=== PATIENT | female | born 1970 | race African-American/Black ===

== ENCOUNTER 2018-10-11 19:22 | Emergency (ER) | payer BC ==
[~2018-10-11] VITALS: Ht 162.6 cm; Wt 74.8 kg
--- OUTSIDE RECORDS SUMMARY | 2018-10-11 19:28 | XMS REPORT | Continuity of Care Document ---
Author Author [facility] Organization [facility] Address Unknown Phone Unavailable Care Team Providers Care Revenue Investigator Name Role Phone Tyba Unavailable Unavailable Problems Problem Status Onset Date Classification Date Reported Comments Source SCREENING NO PAIN,NO LUMPS,NO IMPLANT Active 08/05/2016 [facility] SCREENING Active 09/16/2015 [facility] HYPERTENSION Active 02/12/2015 [facility] 784.2 CERVICAL SPINAL MASS Active 03/27/2014 [facility] 789.00=ABDOMINAL DISCOMFORT IN LEFT FLAN Active 03/27/2014 [facility] HYPERTENSION/ABN CT SCAN/EPIGASTRIC PAIN Active 03/03/2014 [facility] EPIGASTRIC PAIN Active 02/28/2014 [facility] ROUTINE Active 01/27/2014 [facility] SORE THROAT Active 12/16/2013 [facility] Discharge Diagnosis: Dysphagia 12/16/2013 12/19/2013 [facility] Anemia (disorder) Active Problem 05/16/2018 [facility] Impaired glucose tolerance (disorder) Active Problem 05/16/2018 [facility] Hypertensive disorder, systemic arterial (disorder) Active Problem 05/16/2018 [facility] Medications Medication Details Route Status Patient Instructions Ordering Provider Order Date Source Saline Flush 0.9% 10 mL, Route: IVP, Drug Form: INJ, Dosing Weight 65.909, kg, PRN, PRN Line Flush, Start date: 02/12/15 18:43:00, Duration: 30 day, Stop date: 03/14/15 18:42:00Notes: (Same as: BD Posiflush) Inactive 02/13/2015 [facility] Allergies, Adverse Reactions, Alerts No Known Medication Allergies Immunizations No Data Provided for This Section Results Order Name Results Value Reference Range Date Interpretation Comments Source URINE CHEM U Preg Negative (03/28/14 9:22 AM) Negative 03/28/2014 [facility] Pathology Reports No Data Provided for This Section Diagnostic Reports Report Value Date Source Breast Mammo Scrn WALTER incl CAD MA - BREAST MAMMO SCRN WALTER INCL CAD MA BILATERAL DIGITAL SCREENING MAMMOGRAM WITH CAD: 09/16/2016 CLINICAL: Rotuine/Screen. Current study was evaluated with a Computer Aided Detection (CAD) system. Comparison is made to exams dated: 01/31/2014 mammogram, 08/17/2012 mammogram and 05/25/2007 mammogram - [facility]. There are scattered fibroglandular densities in both breasts. There is a benign appearing density in both breasts. There also are benign appearing calcifications in the right breast. No significant masses, calcifications, or other findings are seen in either breast. There has been no significant interval change. IMPRESSION: BENIGN There is no mammographic evidence of malignancy. A 1 year screening mammogram is recommended. Dina banda/penrad:09/16/2016 09:34:42 Wind Turbine Installer: Angelique Pereira, [facility] This exam was dictated and interpreted by [id number] for [facility] [place]. letter sent: Normal exam Mammogram BI-RADS: 2 Benign 09/16/2016 [facility] Neck soft tissue wo contrast CT CT SOFT TISSUE NECK WITHOUT CONTRAST HISTORY: Cervical spine the, patient reports palpable mass of the left neck. COMPARISON: None available. FINDINGS: No left neck soft tissue mass is identified. There are mildly prominent nonspecific cervical lymph nodes bilaterally, including a left level 3 node posterior to the sternocleidomastoid and just below the level of the hyoid which measures 5 x 8 x 11 mm and could potentially correspond to a small palpable mass (axial series 3 image 31). Salivary glands appear normal. No soft tissue fluid collection. Normal appearance of the front of house manager space. No mucosal lesion of the aerodigestive tract is identified. Vocal cords are symmetric. Thyroid gland appears normal. Lung apices are clear. Osseous structures are unremarkable. IMPRESSION: 1. No soft tissue mass or definite pathologic adenopathy. 2. Mildly prominent cervical lymph nodes bilaterally including a left posterior level 3 node just below the level of the hyoid which could potentially correspond to a small palpable mass. SL: 14 03/31/2014 [facility] Gallbladder scan HIDA wo meds NM HIDA Scan: CLINICAL HX: Abdomen pain COMPARISON: No priors TECHNIQUE: 6 mCi of [id number] were administered intravenously and images obtained in anterior projection. FINDINGS: The liver demonstrates homogeneous tracer activity. The gallbladder and small bowel are well visualized 55 minutes postinjection. This eliminates any significant cystic duct or common bile duct obstruction. IMPRESSION: Normal HIDA scan. SL:13 03/28/2014 [facility] Small bowel series DX PROCEDURE: Bowel small bowel series CLINICAL INFORMATION 401.9 hypertension, abnormal ct scan 793.4, epigastric pain 789.06 ct scan shows possible twisted loop in small bowel COMPARISON: None. Coagulating Operator image of the abdomen demonstrates a moderate degree of retained feces throughout the colon. Mild degree of residual contrast is noted in the right lower quadrant. No small bowel obstruction. Contrast progresses to the colon at 15 minutes. There is a normal fold pattern and caliber to the small bowel. Real-time time evaluation demonstrates normal peristalsis. Spot images of the terminal ileum are normal. IMPRESSION: Normal small bowel series. Fluoro time 0.7 minutes SL: 13 03/06/2014 [facility] Digital Mammo Screen Walter MA w rebecca - DIGITAL MAMMO SCREEN WALTER MA W REBECCA BILATERAL DIGITAL SCREENING MAMMOGRAM 3D/2D WITH CAD: 01/31/2014 CLINICAL: Routine. 2D digital mammographic images and 3D digital tomosynthesis images were obtained in the CC and MLO projections. Current study was evaluated with a Computer Aided Detection (CAD) system. Comparison is made to exams dated: 05/25/2007 mammogram and 08/17/2012 mammogram - [facility]. There are scattered fibroglandular densities in both breasts. There is a benign appearing density in both breasts. No significant masses, calcifications, or other findings are seen in either breast. There has been no significant interval change. IMPRESSION: BENIGN There is no mammographic evidence of malignancy. A screening mammogram in one year is recommended. Jasper Ibarra M.D. ap/penrad:02/03/2014 10:00:01 Wind Turbine Installer: Vidya Beatty, [facility] This exam was dictated and interpreted by [id number] for [facility] [place]. letter sent: Normal exam Mammogram BI-RADS: 2 Benign 01/31/2014 [facility] Digital Mammo Screen Walter MA w rebecca - DIGITAL MAMMO SCREEN WALTER MA W REBECCA BILATERAL DIGITAL SCREENING MAMMOGRAM 3D/2D WITH CAD: 08/17/2012 CLINICAL: Screen. 2D digital mammographic images and 3D digital tomosynthesis images were obtained in the CC and MLO projections. Current study was evaluated with a Computer Aided Detection (CAD) system. Comparison is made to exam dated: 05/25/2007 mammogram - [facility]. There are scattered fibroglandular elements in both breasts that could obscure a lesion on mammography. There is a benign density in the left breast. No significant masses, calcifications, or other findings are seen in either breast. There has been no significant interval change. IMPRESSION: BENIGN There is no mammographic evidence of malignancy. A screening mammogram in one year is recommended. SUMMARY: SL: 13. Dina banda/augie:08/20/2012 11:36:29 Wind Turbine Installer: Marylin Nelson, [facility] letter sent: Normal exam Mammogram BI-RADS: 2 Benign 08/17/2012 [facility] Consultation Notes No Data Provided for This Section Discharge Summaries No Data Provided for This Section History and Physicals No Data Provided for This Section Vital Signs Vital Sign Value Date Comments Source Respitory Rate 18 02/13/2015 [facility] Temperature Oral (F) 98.5 F 02/13/2015 [facility] Systolic (mm Hg) 187 02/13/2015 [facility] Diastolic (mm Hg) 95 02/13/2015 [facility] Heart Rate 102 02/13/2015 [facility] Height 162.56 cm 02/13/2015 [facility] Weight 65.909 02/13/2015 [facility] BMI Calculated 24.94 02/13/2015 [facility] BMI Calculated 24.94 12/17/2013 [facility] Height 162.56 cm 12/17/2013 [facility] Weight 65.909 12/17/2013 [facility] Temperature Oral (F) 98.8 F 12/17/2013 [facility] Systolic (mm Hg) 160 12/17/2013 [facility] Respitory Rate 20 12/17/2013 [facility] Diastolic (mm Hg) 82 12/17/2013 [facility] Heart Rate 68 12/17/2013 [facility] Encounters Location Location Details Encounter Type Encounter Number Reason For Visit Attending Provider ADM Date DC Date Status Source [facility] Outpatient [id number] SCREENING JACLYN STERLINGSIMONA 08/17/2012 Active [facility] [id number] Skyla Parrish 12/17/2013 12/17/2013 [facility] Outpatient [id number] Jaclyn Jorge 03/28/2014 03/29/2014 [facility] Outpatient [id number] Jaclyn Jorge 03/31/2014 04/01/2014 [facility] [id number] Tao Reynolds 02/13/2015 02/13/2015 [facility] Outpatient [id number] JENNIFER ROMERO 11/11/2015 Active [facility] Outpatient [id number] JENNIFER ROMERO 11/11/2015 Active [facility] Outpatient [id number] JENNIFER ROMERO 05/11/2016 Active [facility] Outpatient [id number] JENNIFER ROMERO 08/01/2016 Active [facility] Outpatient [id number] JENNIFER ROMERO 08/17/2016 [facility] Outpatient [id number] Jaclyn Patel 09/16/2016 09/17/2016 [facility] PreReg [id number] Jaclyn Patel 10/13/2017 10/27/2017 [facility] Procedures Procedure Code Date Perfomer Comments Source section [id number] [facility] Assessment and Plan No Data Provided for This Section Plan of Care No Data Provided for This Section Social History Social History Date Source Social History TypeResponse Alcohol Current, Type Wine. Frequency: 1-2 times per year. Smoking Status Never smoker; Exposure to Tobacco Smoke None; Cigarette Smoking Last 365 Days No; Reg Smoking Cessation Counseling Yes entered on: 08/17/16 08/01/2016 [facility] Family History No Data Provided for This Section Advance Directives No Data Provided for This Section Functional Status No Data Provided for This Section
--- OUTSIDE RECORDS SUMMARY | 2018-10-11 19:29 | XMS REPORT | Summary of Care ---
Author Organization Unknown Address Unknown Phone Unavailable Encounter HQ Priscillantr_karen(TINO) [id number] Date(s): 03/28/14 - 03/28/14 [facility] [address] [place] [address]- Discharge Disposition: Home Physician Attending: Jaclyn Patel DO Physician_Referring: Jacyln Patel DO Vital Signs No data available for this section Problem List Condition Effective Dates Status Health Status Informant Anemia(Confirmed) Active Borderline diabetes Active mellitus(Confirmed) Hypertension(Confirm Active ed) Allergies, Adverse Reactions, Alerts Substance Reaction Severity Status NKDA Active Medications No data available for this section Results URINE CHEM Most recent to 1 oldest [Reference Range]: U Preg [Negative] Negative (03/28/14 9:22 AM) Immunizations No data available for this section Procedures No data available for this section Social History Social History Type Response Smoking Status Never smoker; Exposure to Tobacco Smoke None; Cigarette Smoking Last 365 Days No; Reg Smoking Cessation Counseling Yes Assessment and Plan No data available for this section
--- OUTSIDE RECORDS SUMMARY | 2018-10-11 19:29 | XMS REPORT | Summary of Care ---
Author Author [facility] Organization [facility] Address Unknown Phone Unavailable Encounter HQ Priscillantr_karen(FIN) [id number] Date(s): 10/13/17 - 10/27/17 [facility] [address] [place] [address]- Attending Physician: Jaclyn Patel DO Referring Physician: Jaclyn Patel DO Vital Signs No data available for this section Problem List Condition Effective Dates Status Health Status Informant Anemia(Confirmed) Active Borderline diabetes Active mellitus(Confirmed) Hypertension(Confirm Active ed) Allergies, Adverse Reactions, Alerts Substance Reaction Severity Status NKDA Active Medications No data available for this section Results No data available for this section Immunizations No data available for this section Procedures Procedure Date Related Diagnosis Body Site Status section Completed Social History Social History Type Response Alcohol Current, Type Wine. Frequency: 1-2 times per year. Smoking Status Never smoker; Exposure to Tobacco Smoke None; Cigarette Smoking Last 365 Days No; Reg Smoking Cessation Counseling Yes entered on: 08/17/16 Assessment and Plan No data available for this section
--- OUTSIDE RECORDS SUMMARY | 2018-10-11 19:29 | XMS REPORT ---
Author Author [facility] Address Unknown Phone Unavailable Care Team Providers Care Park Recreation Manager Name Role Phone Unavailable Unavailable Problems This patient has no known problems. Allergies, Adverse Reactions, Alerts This patient has no known allergies or adverse reactions. Medications This patient has no known medications.
--- OUTSIDE RECORDS SUMMARY | 2018-10-11 19:29 | XMS REPORT | Summary of Care ---
Author Organization Unknown Address Unknown Phone Unavailable Encounter RACHELLE Vallejo(TINO) [id number] Date(s): 12/16/13 - 12/16/13 [facility] [address] [place], [place] [id number] [place] [address] Discharge Diagnosis: Dysphagia Discharge Disposition: Home Physician Attending: Skyla Parrish DO Reason for Visit SORE THROAT Vital Signs Most recent to 1 oldest [Reference Range]: Height 162.56 cm (12/16/13 7:14 PM) Temperature Oral 98.8 DegF [96.4-99.1 DegF] (12/16/13 7:14 PM) Systolic Blood 160 mmHg Pressure [90-140 *HI* mmHg] (12/16/13 7:14 PM) Diastolic Blood 82 mmHg Pressure [60-90 (12/16/13 7:14 PM) mmHg] Respiratory Rate 20 BRMIN [14-20 BRMIN] (12/16/13 7:14 PM) Peripheral Pulse 68 bpm Rate [60-100 bpm] (12/16/13 7:14 PM) Weight 65.909 kg (12/16/13 7:14 PM) Body Mass Index 24.94 m2 (12/16/13 7:14 PM) Problem List Condition Effective Dates Status Health Status Informant Anemia(Confirmed) Active Borderline diabetes Active mellitus(Confirmed) Hypertension(Confirm Active ed) Allergies, Adverse Reactions, Alerts Substance Reaction Severity Status NKDA Active Medications No data available for this section Medications Administered During Your Visit No data available for this section Immunizations No data available for this section Procedures Procedure Type Body Site Date of Procedure Related Diagnosis section Social History Social History Type Response Smoking Status Never smoker, Exposure to Tobacco Smoke None, Cigarette Smoking Last 365 Days No, Reg Smoking Cessation Counseling Yes
--- OUTSIDE RECORDS SUMMARY | 2018-10-11 19:29 | XMS REPORT | Summary of Care ---
Author Organization Unknown Address Unknown Phone Unavailable Encounter HQ Encntr_karen(TINO) [id number] Date(s): 03/31/14 - 03/31/14 [facility] [address] [place] [address]- Discharge Disposition: Home Physician Attending: Jaclyn Patel DO Physician_Referring: Jaclyn Patel DO Vital Signs No data [...]
--- OUTSIDE RECORDS SUMMARY | 2018-10-11 19:29 | XMS REPORT | Summary of Care ---
Author Author [facility] Organization [facility] Address Unknown Phone Unavailable Encounter HQ Priscillantr_karen(FIN) [id number] Date(s): 09/16/16 - 09/16/16 [facility] [address] [place] [address]- Discharge Disposition: Home or Self Care Attending Physician: Jaclyn Patel DO Referring Physician: [...] Procedures Procedure Date Related Diagnosis Body Site section Social History Social History Type Response Alcohol Current, Type Wine. Frequency: 1-2 times per year. Smoking Status Never smoker; Exposure to Tobacco Smoke None; Cigarette Smoking Last 365 Days No; Reg Smoking Cessation Counseling Yes Assessment and Plan No data available for this section
--- OUTSIDE RECORDS SUMMARY | 2018-10-11 19:29 | XMS REPORT | Summary of Care ---
Author Author [facility] Organization [facility] Address Unknown Phone Unavailable Encounter RACHELLE Vallejo(TINO) [id number] Date(s): 02/12/15 - 02/12/15 [facility] [address] [place] [address]- Discharge Disposition: Elopement Attending Physician: Tao Reynolds MD Vital Signs Most recent to 1 oldest [Reference Range]: Height 162.56 cm (02/12/15 6:38 PM) Temperature Oral 98.5 DegF [96.4-99.1 DegF] (02/12/15 6:38 PM) Blood Pressure 187/95 mmHg [90-140/60-90 mmHg] *HI* (02/12/15 6:38 PM) Respiratory Rate 18 BRMIN [14-20 BRMIN] (02/12/15 6:38 PM) Peripheral Pulse 102 bpm Rate [60-100 bpm] *HI* (02/12/15 6:38 PM) Weight 65.909 kg (02/12/15 6:38 PM) Body Mass Index 24.94 m2 (02/12/15 6:38 PM) Problem List Condition Effective Dates Status Health Status Informant Anemia(Confirmed) Active Borderline diabetes Active mellitus(Confirmed) Hypertension(Confirm Active ed) Allergies, Adverse Reactions, Alerts Substance Reaction Severity Status NKDA Active Medications Saline Flush 0.9% 10 mL, Route: IVP, Drug Form: INJ, Dosing Weight 65.909, kg, PRN, PRN Line Flush , Start date: 02/12/15 18:43:00, Duration: 30 day, Stop date: 03/14/15 18:42:00 Notes: (Same as: BD Posiflush) Start Date: 02/12/15 Stop Date: 02/12/15 Status: Discontinued Results No data available for this section [...]
[2018-10-11] MEDS ORDERED: ONDANSETRON HCL INJ 2MG/ML 2ML 2 MG/ML VIAL IV ONE (19:36)
[2018-10-11] MEDS ORDERED: HYDROMORPHONE 1MG/1ML INJ IV ONE (19:36)
[2018-10-11] MEDS ORDERED: MORPHINE SULFATE 2 MG/ML SYR 1ML IV STA (19:41)
[2018-10-11] MEDS ORDERED: SODIUM CHLORIDE 0.9% 1000ML 1,000 ML IV STA (19:42)
[2018-10-11] MEDS ORDERED: MORPHINE SULFATE INJ 4 MG/ML INJ 1ML IV ONE ×2 (19:45→20:00)
[2018-10-11] MEDS ORDERED: DICYCLOMINE HCL 20 MG/2 ML VIAL IM ONE ×2 (19:45→19:48)
[2018-10-11] MEDS ORDERED: MORPHINE SULFATE INJ 4 MG/ML INJ 1ML ONE (19:48)
[2018-10-11] MEDS ORDERED: SODIUM CHLORIDE 0.9% 1000ML 1,000 ML ONE (19:48)
--- NOTE | 2018-10-11 20:46 | Diagnostic Imaging Report ---
EXAMINATION: CT of the abdomen and pelvis without contrast. TECHNIQUE: Helical CT images of the abdomen and pelvis were performed from the lung bases to the lesser trochanters. No intravenous contrast was given per renal stone protocol. Coronal and sagittal reformatted images were obtained.Dose modulation, iterative reconstruction, and/or weight based adjustment of the mA/kV was utilized to reduce the radiation dose to as low as reasonably achievable. COMPARISON: None. CLINICAL HISTORY:Abdominal pain DISCUSSION: ABSENCE OF INTRAVENOUS CONTRAST DECREASES SENSITIVITY FOR DETECTION OF FOCAL LESIONS AND VASCULAR PATHOLOGY. ABDOMEN/PELVIS: LOWER THORAX: Unremarkable. HEPATOBILIARY:No focal hepatic lesions. No biliary ductal dilation. The gallbladder is normal. SPLEEN: No splenomegaly. PANCREAS: No focal masses or ductal dilatation. ADRENALS: No adrenal nodules. KIDNEYS/URETERS: No hydronephrosis, stones, or solid mass lesions. PELVIC ORGANS/BLADDER: The bladder is normal. PERITONEUM/RETROPERITONEUM: No free air or fluid. LYMPH NODES: No intra-abdominal,retroperitoneal, pelvic or inguinal lymphadenopathy. VESSELS: The celiac trunk,superior and inferior mesenteric and bilateral renal arteries are patent The portal, superior mesenteric and splenic veins are patent. GI TRACT: Prominent loops of small bowel throughout the abdomen measuring up to 2.6 cm. No discrete transition point. Scattered colonic diverticulosis. BONES AND SOFT TISSUES: No bony destructive lesions. No soft tissue abnormalities. IMPRESSION: Prominent loops of fluid-filled bowel throughout the abdomen without transition point visualized. Favored to reflect ileus/enteritis. Early obstruction however possible. Signed by: Dr. Imer Brooks M.D. on 10/11/2018 8:43 PM
[2018-10-11 21:55] VITALS: BP 161/78
== END 2018-10-11 22:07 | disposition home or self-care (01) ==
LOC: FSED 19:22
DX: R10.33 Periumbilical pain (principal); R11.2 Nausea with vomiting, unspecified
CPT/HCPCS: 74176; 80053; 80076; 81003; 81025; 85025; 96372; 96374; 96376; 99283; J0500; J2270; J2405; J7030